=== PATIENT | male | born 1975 | race African-American/Black ===

== ENCOUNTER 2019-02-16 11:14 | Emergency (ER) | payer OTHER ==
[2019-02-16 12:16] LABS: ABS Basophils 0.1 10^3/ul (0-0.2); ABS Eosinophils 0.1 10^3/ul (0-0.6); ABS Monocytes 0.9 10^3/ul (0-0.8); ABS Nucleated RBC 0 10^3/ul; Eosinophil % 1.4 %; Hematocrit 46 % (36-46); Lymphocyte % 10.5 %; Mean Corpuscular HGB Conc 35 g/dL (31-36); Mean Corpuscular Hemoglobin 31 pg (27-31); Mean Corpuscular Volume 90 fL (80-94); Mean Platelet Volume 7.1 fL (7.4-10.4); Nucleated Red Blood Cells % 0.1; Platelet Count 288 10^3/uL (150-450); Red Blood Count 5.13 10^6 /uL (4.18-5.48); Red Cell Distribution Width 14 % (10.5-15)
[2019-02-16 12:31] LABS: Albumin 4.7 g/dL (3.2-5.2); Albumin/Globulin Ratio 1.6 (1-3); BUN/Creatinine Ratio 15.3 (8-20); Calcium 9.8 mg/dL (8.6-10.3); EGFR African American 65.1 (>60); EGFR Non-African American 53.8 (>60); Globulin 2.9 g/dL (2-4); Magnesium 2.2 mg/dL (1.9-2.7); Potassium 4.6 mmol/L (3.5-5.0); Total Bilirubin 0.7 mg/dL (0.2-1.0); Total Protein 7.6 g/dL (6.4-8.9)
[2019-02-16 12:53] LABS: TSH (Thyroid Stimulating Horm) 1.92 mcIU/mL (0.34-5.60)
[2019-02-16] MEDS ORDERED: Acetaminophen TAB* 325 MG PO ONE (13:20)
--- NOTE | 2019-02-16 16:03 | ED ---
Syncope/Near Syncope - HPI Summary HPI Summary: Patient is a 43-year-old male who presents to the ED from [address] [place] [address] present presenting with a concern over a syncopal episode which happened 2 days ago. He states he was in the gym when he had a syncopal episode and does not recall the events that happened immediately following. He states he a[facility] in [facility]. He was not given medications. He states he was kept for several hours and felt fine so was sent back to his cell. The last 2 evenings he has been complaining of a frontal headache, photophobia and nausea and one time emesis. He denies any nausea vomiting currently. He denies any headache currently. Headache is only present when lying flat on his back when trying to sleep, better with standing upright. He states he has not gotten any sleep of the past 2 days as he has been ambulating around instead of lying flat. He has not been given Tylenol or ibuprofen for relief. Denies any neck pain, dysphagia , odynophagia, fevers, sweats, chills. He has never had a syncopal episode in the past. He takes no medications. He denies any drug or alcohol use. Patient is a daily cigarette smoker. He has no cardiac or pulmonic history. He states the day he had a syncopal episode, he did not have anything to eat that day and was "extremely stressed out." Patient not currently on blood thinners - no significant PMH. - History Of Current Complaint Chief Complaint: EDSyncope Time Seen by Provider: 02/16/19 11:16 Hx Obtained From: Patient Onset/Duration: Sudden Onset Timing: Constant Context: Witnessed Aggravating Factor(s): Position Change - lying flat causes worsening sxs Associated Signs And Symptoms: Head Trauma (Recent) - 2 dys ago, Headache, Vomiting - Risk Factors Cardiac Risk Factors: Negative Dysrhythmia Risk Factors: Negative Risk Factor(s): Negative - Allergies/Home Medications Allergies/Adverse Reactions: Allergies Allergy/AdvReac Type Severity Reaction Status Date / Time No Known Allergies Allergy Verified 02/16/19 11:23 Home Medications: Home Medications NK [No Home Medications Reported] 02/16/19 [History Confirmed 02/16/19] PMH/Surg Hx/FS Hx/Imm Hx Previously Healthy: Yes - Immunization History Hx Pertussis Vaccination: No Immunizations Up to Date: Yes Infectious Disease History: No Infectious Disease History: Denies: Traveled Outside the [place] in Last 30 Days - Social History Occupation: Unemployed Lives: Alone - [facility] Alcohol Use: None Substance Use Type: Reports: None Smoking Status (MU): Former Smoker Review of Systems Constitutional: Negative Negative: Fever, Chills, Fatigue, Skin Diaphoresis Negative: Photophobia, Blurred Vision, Diplopia, Drainage Negative: Epistaxis, Dental Pain Negative: Palpitations, Chest Pain Negative: Shortness Of Breath, Cough Positive: Vomiting - one episode of emesis, Nausea Negative: Arthralgia, Myalgia Negative: Rash Positive: Headache - only with lying flat. Negative: Weakness, Paresthesia, Numbness, Syncope, Slurred Speech Psychological: Normal All Other Systems Reviewed And Are Negative: Yes Physical Exam Triage Information Reviewed: Yes Vital Signs On Initial Exam: Initial Vitals Temp Pulse Resp BP Pulse Ox 97.0 F 66 16 143/93 99 02/16/19 11:20 02/16/19 11:20 02/16/19 11:20 02/16/19 11:20 02/16/19 11:20 Vital Signs Reviewed: Yes Appearance: Positive: Well-Appearing Skin: Positive: Warm, Skin Color Reflects Adequate Perfusion Head/Face: Positive: Normal Head/Face Inspection Eyes: Positive: KEMAL Neck: Positive: Supple, No Lymphadenopathy Respiratory/Lung Sounds: Positive: Clear to Auscultation, Breath Sounds Present Cardiovascular: Positive: RRR, Pulses are Symmetrical in both Upper and Lower Extremities Musculoskeletal: Positive: Normal, Strength/ROM Intact Neurological: Positive: Sensory/Motor Intact, Alert, Oriented to Person Place, Time, CN Intact II-III, Reflexes Intact, Normal Gait, Finger to Nose, Speech Normal Psychiatric: Positive: Normal, Affect/Mood Appropriate AVPU Assessment: Alert Diagnostics - Vital Signs Vital Signs Temp Pulse Resp BP Pulse Ox 02/16/19 13:42 97.8 F 68 18 147/78 99 02/16/19 13:30 68 18 147/78 99 02/16/19 13:00 58 10 99 02/16/19 12:59 59 16 145/85 98 02/16/19 12:40 70 19 139/87 99 02/16/19 12:04 79 149/83 02/16/19 12:02 30 149/83 02/16/19 12:01 14 138/90 02/16/19 12:00 14 130/79 02/16/19 11:39 25 02/16/19 11:20 97.0 F 66 16 143/93 99 - Laboratory Lab Results: Lab Results 02/16/19 02/16/19 02/16/19 Range/Units 12:06 12:06 12:06 WBC 9.0 (3.5-10.8) 10^3/uL RBC 5.13 (4.18-5.48) 10^6 /uL Hgb 16.0 (14.0-18.0) g/dL Hct 46 (36-46) % MCV 90 (80-94) fL MCH 31 (27-31) pg MCHC 35 (31-36) g/dL RDW 14 (10.5-15) % Plt Count 288 (150-450) 10^3/uL MPV 7.1 L (7.4-10.4) fL Neut % (Auto) 77.3 % Lymph % (Auto) 10.5 % Edwards % (Auto) 9.9 % Eos % (Auto) 1.4 % Baso % (Auto) 0.9 % Absolute Neuts (auto) 7.0 (1.5-7.7) 10^3/ul Absolute Lymphs (auto) 1.0 (1.0-4.8) 10^3/ul Absolute Monos (auto) 0.9 H (0-0.8) 10^3/ul Absolute Eos (auto) 0.1 (0-0.6) 10^3/ul Absolute Basos (auto) 0.1 (0-0.2) 10^3/ul Absolute Nucleated RBC 0 10^3/ul Nucleated RBC % 0.1 Sodium 137 (135-145) mmol/L Potassium 4.6 (3.5-5.0) mmol/L Chloride 102 (101-111) mmol/L Carbon Dioxide 27 (22-32) mmol/L Anion Gap 8 (2-11) mmol/L BUN 22 (6-24) mg/dL Creatinine 1.44 H (0.67-1.17) mg/dL Est GFR ( Amer) 65.1 (>60) Est GFR (Non-Af Amer) 53.8 (>60) BUN/Creatinine Ratio 15.3 (8-20) Glucose 102 H (70-100) mg/dL Lactic Acid 0.8 (0.5-2.0) mmol/L Calcium 9.8 (8.6-10.3) mg/dL Magnesium 2.2 (1.9-2.7) mg/dL Total Bilirubin 0.70 (0.2-1.0) mg/dL AST 20 (13-39) U/L ALT 11 (7-52) U/L Alkaline Phosphatase 45 (34-104) U/L Troponin I 0.00 (<0.04) ng/mL Total Protein 7.6 (6.4-8.9) g/dL Albumin 4.7 (3.2-5.2) g/dL Globulin 2.9 (2-4) g/dL Albumin/Globulin Ratio 1.6 (1-3) TSH 1.92 (0.34-5.60) mcIU/mL Result Diagrams: 02/16/19 12:06 02/16/19 12:06 Lab Statement: Any lab studies that have been ordered have been reviewed, and results considered in the medical decision making process. Course/Dx Course Of Treatment: During the course of treatment, the patient's evaluated for syncopal episode. EKG obtained which shows normal sinus rhythm with a rate of 60. Patient appears well on arrival, nontoxic appearing, afebrile and vital signs stable. Physical examination his lungs CTA, RRR. He denies any visual changes or disturbances. Brain CT obtained which shows no intracranial abnormalities. Labs obtained which showed no acute findings. Discussed this with patient. I've given him Tylenol with some improvement. Patient is sleeping and comfortable upon discharge. He is given Tylenol and ibuprofen to be taken every 3 hours intermittently as needed for any discomfort. He will have a follow-up his primary or to the [facility] in 2-3 days for recheck and will be taken out of work 5 days. At this point I am not concerned over an intracranial abnormality, and he is diagnosed with concussion. Likely patient struck his head during the syncopal episode, however no signs of trauma were identified. - Diagnoses Differential Diagnosis/HQI/PQRI: Positive: Cerebral Vascular Accident, Hypoglycemia, Hypovolemia, Vasovagal Episode, Other - syncope Provider Diagnoses: Syncope, Concussion Discharge - Sign-Out/Discharge Documenting (check all that apply): Patient Departure Patient Received Moderate/Deep Sedation with Procedure: No - Discharge Plan Condition: Stable Disposition: HOME Patient Education Materials: Concussion (ED) Referrals: Davis MCNEIL,Rodney Lagos [Primary Care Provider] - Additional Instructions: Tylenol 650mg every 6 hours while awake Ibuprofen 600mg every 6 hours while awake You are able to take a medication every 3 hours for pain control As you begin to feel better, you do not need to continue both medications, and may only take one medication if desired I recommend brain rest and sleep Try to avoid prolonged tv watching, reading, writing, etc. Out of work x 5 days Please see your primary or someone at your center who can re-evaluate your concussive symptoms prior to returning to work - Billing Disposition and Condition Condition: STABLE Disposition: Home
== END 2019-02-16 13:42 | disposition home or self-care (01) ==
LOC: ED 11:14
DX: S06.0X9A Concussion with loss of consciousness of unspecified duration, initial encounter (principal); R55 Syncope and collapse; Z87.891 Personal history of nicotine dependence; X58.XXXA Exposure to other specified factors, initial encounter; Y92.148 Other place in prison as the place of occurrence of the external cause
CPT/HCPCS: 36415; 70450; 80053; 83605; 83735; 84443; 84484; 85025; 93005; 99283; A9270-GY